=== PATIENT | male | born 1980 | race Caucasian/White ===

== ENCOUNTER 2018-04-13 15:06 | Emergency (ER) | payer MEDICAID, OTHER ==
[2018-04-13] MEDS: IBUPROFEN 600 MG TAB PO (15:42)
== END 2018-04-13 16:56 | disposition home or self-care (01) ==
LOC: FTE 16:56
DX: M25.561 Pain in right knee (principal)
CPT/HCPCS: 29505; 73562; 99283-25

== ENCOUNTER 2018-04-15 12:39 | Emergency (ER) | payer MEDICAID | END 2018-04-15 14:26 | disposition home or self-care (01) | LOC: FTE 12:39 | DX: M25.561 Pain in right knee (principal) | CPT/HCPCS: 99283; Z7502 ==